=== PATIENT | female | born 1945 | race Caucasian/White ===

== ENCOUNTER 2016-11-21 10:24 | Emergency (ER) | payer MEDICARE, BC ==
[~2016-11-21] VITALS: Ht 165.1 cm; Wt 91.6 kg
[~2016-11-21 10:24] MED LIST: CLON1TAB PO; DOXE25CA3 PO; DULO60CA45 PO; MELO7.5T12 PO; TOPI50TA PO
[2016-11-21 11:27] VITALS: BP 115/74
== END 2016-11-21 12:48 | disposition home or self-care (01) ==
LOC: ER 10:30
DX: J20.9 Acute bronchitis, unspecified (principal); Z88.0 Allergy status to penicillin; Z88.8 Allergy status to other drugs, medicaments and biological substances; K57.90 Diverticulosis of intestine, part unspecified, without perforation or abscess without bleeding
CPT/HCPCS: 71010; 99283; A4606; Z7610

== ENCOUNTER 2017-01-31 11:53 | Inpatient (IN) | payer MEDICARE, BC ==
[~2017-01-31] VITALS: Ht 165.1 cm; Wt 93.0 kg
[2017-01-31] MEDS ORDERED: IV SET PRIMARY PUMP SET 1 EA INFUS.SET MC ONE ×3 (12:04→17:06)
[2017-01-31] MEDS ORDERED: IV NS 0.9% 1,000 ML ONE (12:04)
--- NOTE | 2017-01-31 12:07 | NUR ---
AAOx3, came to ER c/o fever this AM. Skin is hot to touch, resp is even and unlabored with nad noted. Assisted to hospital gown, placed on monitor. will continuously monitor the patient. Awaiting md for eval.
[2017-01-31 12:18] LABS: BASOPHILS # (AUTO) 0.4 /CMM (0.0-0.2); BASOPHILS % (AUTO) 3.7 % (0.0-2.0); EOSINOPHILS # (AUTO) 0.1 /CMM (0.0-0.7); EOSINOPHILS % (AUTO) 0.6 % (0.0-6.0); HEMATOCRIT 43 % (33-45); HEMOGLOBIN 14.1 g/dL (11.5-14.8); LYMPHOCYTES # (AUTO) 0.2 /CMM (0.8-4.8); LYMPHOCYTES % (AUTO) 2.5 % (20.0-44.0); MEAN CORPUSCULAR HEMOGLOBIN 29 PG (26.0-33.0); MEAN CORPUSCULAR HGB CONC 33 g/dl (31.0-36.0); MEAN CORPUSCULAR VOLUME 88 fL (82-100); MONOCYTES # (AUTO) 0.3 /CMM (0.1-1.30); NEUTROPHILS % (AUTO) 90.2 % (43.0-81.0); PLATELET COUNT (AUTO) 245 /CMM (150-450); RED BLOOD CELL COUNT(AUTO) 4.88 MIL/uL (4.0-5.2)
--- NOTE | 2017-01-31 12:21 | NUR ---
urine obtained sent to the lab.
[2017-01-31 12:24] LABS: APPEARANCE,URINE Slightly Cloudy (CLEAR); BILIRUBIN,URINE Negative (NEGATIVE); BLOOD, URINE Small Ery/uL (NEGATIVE); COLOR,URINE Yellow (YELLOW); KETONES,URINE Negative (NEGATIVE); LEUKOCYTE ESTERASE ,URINE Negative (NEGATIVE); NITRITE, URINE Negative (NEGATIVE); PROTEIN,URINE Negative (NEGATIVE); UROBILINOGEN,URINE 0.2 EU/dL (0.2)
[2017-01-31 12:25] LABS: UGLUCOSE 100 MG/DL mg/dL (NEGATIVE)
[2017-01-31 12:28] LABS: CALCIUM, SERUM 8.8 mg/dL (8.5-10.1); CARBON DIOXIDE 26 mmol/L (21-32); CHLORIDE 104 mmol/L (98-107); GFR 55 mL/min (>60); GLUCOSE 221 mg/dL (74-106); POTASSIUM 3.7 mmol/L (3.5-5.1); SODIUM SERUM 137 mmol/L (136-145); UREA NITROGEN, BLOOD 13 mg/dL (7-18)
[2017-01-31] MEDS ORDERED: IV NS 0.9% 1,000 ML BAG IV ONE (12:30)
[2017-01-31 12:32] LABS: INR 1.03 (0.87-1.13); PROTHROMBIN TIME 10.7 SECS (9.5-12.7)
[2017-01-31 12:34] LABS: ALANINE AMINOTRANSFERASE 37 U/L (12-78); ALBUMIN 3.9 g/dL (3.4-5.0); ALKALINE PHOSPHATASE 107 U/L (46-116); ASPARTATE AMINOTRANSFERASE 24 U/L (15-37); BILIRUBIN,DIRECT 0.1 mg/dL (0.0-0.2); BILIRUBIN,TOTAL 0.6 mg/dL (0.2-1.0)
[2017-01-31 12:36] LABS: TROPONIN I < 0.017 ng/mL (0.00-0.056)
[2017-01-31 12:38] LABS: ADD URINE CULTURE NO; BACTERIA,URINE Rare /HPF (None Seen); SQUAMOUS EPITHELIAL CELL,UR Few /HPF (None Seen)
[2017-01-31 13:13] LABS: LACTIC ACID 2.8 mmol/L (0.4-2.0)
--- NOTE | 2017-01-31 13:15 | NUR ---
Dr Chase at BS for an update and re-eval.
[2017-01-31] MEDS ORDERED: HYDROCODONE/APAP 5/325MG 1 EACH TABLET ONE (13:23)
[2017-01-31] MEDS ORDERED: IV SET PRIMARY 1 EA INFUS.SET MC ONE (13:23)
[2017-01-31] MEDS ORDERED: IV NS 0.9% 2,000 ML ONE (13:23)
[2017-01-31] MEDS ORDERED: CEFTRIAXONE 1GM BAG (ER ONLY) 1 GM/50 ML PIGGYBACK IV ONE (13:30)
[2017-01-31] MEDS ORDERED: IV NS 0.9% 1,000 ML IV ONE ×2 (13:30)
[2017-01-31] MEDS ORDERED: HYDROCODONE/APAP 5/325MG 1 EACH TABLET PO ONE (13:30)
--- NOTE | 2017-01-31 13:30 | NUR ---
PAGED DR STINSON
[2017-01-31] MEDS ORDERED: CEFTRIAXONE 1GM BAG (ER ONLY) 50 ML IV ONE (13:33)
[2017-01-31] MEDS ORDERED: GLUC500T12 PO (13:44)
[2017-01-31] MEDS ORDERED: SERT100T PO (13:44)
[2017-01-31] MEDS ORDERED: CYAN500T4 PO (13:44)
[2017-01-31] MEDS ORDERED: VITA1TAB56 PO (13:44)
[2017-01-31] MEDS ORDERED: DOXE10CA2 PO (13:46)
--- NOTE | 2017-01-31 14:35 | NUR ---
TELE1/RN REPORT FROM ER Report received from ER Nurse Gaye for pt to be admitted for sepsis under the care of Dr. Miguel. Awaiting for pt's arrival.
--- NOTE | 2017-01-31 14:42 | NUR ---
REPORT GIVEN TO MARCIE VALENCIA FOR HALLIE.
[2017-01-31] MEDS ORDERED: GLUCOSAMINE HCL 500 MG PO SCH (15:30)
[2017-01-31] MEDS ORDERED: MAG HYDROX/AL HYDROX/SIMETH 30 ML UDC PO PRN (15:30)
[2017-01-31] MEDS ORDERED: ACETAMINOPHEN 325 MG TABLET PO PRN (15:30)
[2017-01-31] MEDS ORDERED: Z GUARD REMEDY 2 OZ OINT TP PRN (15:30)
[2017-01-31] MEDS ORDERED: MAGNESIUM HYDROXIDE 30 ML UDC PO PRN (15:30)
[2017-01-31] MEDS ORDERED: ONDANSETRON HCL/PF 4 MG/2 ML VIAL IVP PRN (15:30)
[2017-01-31] MEDS ORDERED: ZOLPIDEM TARTRATE 5 MG TABLET PO PRN (15:30)
--- NOTE | 2017-01-31 15:30 | NUR ---
Patient is resting comfortably in bed with eyes closed. Easily aroused. VSS
[2017-01-31 16:20] VITALS: BP 145/91
--- NOTE | 2017-01-31 16:20 | NUR ---
TELE1/HOTEL CASINO FLOORPERSON TO TELE1 UNIT, ROOM 117#1 Pt arrived via gurney from ER, accompanied by ER nurse Luis and transport personnel. Pt ambulated to the bed, with steady gait. Pt A/O x 4, denies any symptoms at this time. On room saturating @ 98%, lung sounds clear, on tele with sinus rhythm. IV sites flushed, patent with no S/S of infection, SL. Pt is comfortable at this time. Awaiting for admitting orders. CL within reached and safety maintained.
[2017-01-31] MEDS: PANTOPRAZOLE 40 MG TABLET.DR PO SCH (17:13)
[2017-01-31] MEDS: IV 1/2NS 1000 ML 1,000 ML IV PRN (17:13)
[2017-01-31] MEDS: HYDROCODONE/APAP 5/325MG 1 EACH TABLET PO PRN ×2 (17:16→20:49)
--- NOTE | 2017-01-31 19:30 | NUR ---
RN INITIAL NOTE RECEIVED PT IN NO ACUTE DISTRESS IN BED. PT IS A/O X 3 AND ABLE TO MAKE NEEDS KNOWN. PT IS ON RA AND TOLERATING WELL WITH O2 SAT @ 99%. PT IS NOT C/O ANY SOB OR DIFFICULTY BREATHING. PT IS C/O PAIN 8/10 IN THE ABDOMEN, BACK, NECK AND HEAD. PAIN MANAGEMENT INITIATED AND CARRIED OUT. PT GIVEN NORCO 5/325 FOR PAIN. PT IS ON TELE WITH SINUS RHYTHM ON THE MONITOR. PT HAS BSC AND IS ABLE TO USE IT WITHOUT ASSISTANCE. PT HAS BRP WITH ASSIST. PT HAS BILATERAL AC 18G IVs THAT ARE CLEAN DRY INTACT AND PATENT. BED IN LOW LOCK POSITION WITH RIALS UP X 2. CALL LIGHT WITHIN REACH AND ALL SAFETY MEASURES ENSURED AND CARRIED OUT. WILL CONTINUE TO MONITOR PT.
--- NOTE | 2017-01-31 19:43 | NUR ---
TELE1/RN END NOTES No Acute change of condition noted, since pt was admitted this afternoon. Needs met. Pt endorsed to PM nurse to continue care. IV sites patent, IV infusion on going 1/2 NS @ 75cc/hr. CL within reached and safety maintained.
[2017-01-31 20:00] VITALS: BP 151/66
[2017-01-31] MEDS: ENOXAPARIN SODIUM 40 MG/0.4 ML DISP.SYRIN SQ SCH (21:00)
[2017-01-31] MEDS ORDERED: DOXEPIN HCL 10 MG CAPSULE PO SCH (22:00)
[2017-01-31] MEDS: clonazePAM 1 MG TABLET PO SCH (22:06)
[2017-01-31] MEDS ORDERED: DOXEPIN HCL (25 MG) 25 MG CAPSULE PO ONE (22:15)
[2017-01-31] MEDS: DOXEPIN HCL (25 MG) 25 MG CAPSULE PO SCH (22:40)
[2017-02-01] MEDS: HYDROCODONE/APAP 5/325MG 1 EACH TABLET PO PRN ×4 (02:01→18:16)
[2017-02-01 04:00] VITALS: BP 128/52
--- NOTE | 2017-02-01 06:43 | NUR ---
RN [id number] NOTE PT REMAINS IN NO ACUTE DISTRESS IN BED. PT DID NOT HAVE ANY SIGNIFICANT CHANGE IN CONDITION DURING SHIFT. ALL NEEDS MET ALL ORDERS CARRIED OUT. WILL ENDORSE CARE TO AM RN FOR CONTINUITY OF CARE.
[2017-02-01 07:08] LABS: BASOPHILS % (AUTO) 0.2 % (0.0-2.0); EOSINOPHILS # (AUTO) 0.1 /CMM (0.0-0.7); EOSINOPHILS % (AUTO) 1.1 % (0.0-6.0); HEMATOCRIT 35 % (33-45); LYMPHOCYTES # (AUTO) 0.6 /CMM (0.8-4.8); LYMPHOCYTES % (AUTO) 10.6 % (20.0-44.0); MEAN CORPUSCULAR HEMOGLOBIN 30 PG (26.0-33.0); MEAN CORPUSCULAR HGB CONC 35 g/dl (31.0-36.0); MEAN CORPUSCULAR VOLUME 87 fL (82-100); MONOCYTES # (AUTO) 0.3 /CMM (0.1-1.30); MONOCYTES % (AUTO) 5.7 % (2.0-12.0); NEUTROPHILS # (AUTO) 4.5 /CMM (1.8-8.9); NEUTROPHILS % (AUTO) 82.4 % (43.0-81.0); PLATELET COUNT (AUTO) 206 /CMM (150-450); RDW COEFFICIENT OF VARIATION 13.7 (11.5-15.0); RED BLOOD CELL COUNT(AUTO) 3.98 MIL/uL (4.0-5.2); WHITE BLOOD COUNT (AUTO) 5.5 K/uL (4.3-11.0)
[2017-02-01 07:26] LABS: ALANINE AMINOTRANSFERASE 64 U/L (12-78); ALBUMIN 2.9 g/dL (3.4-5.0); ALKALINE PHOSPHATASE 94 U/L (46-116); ASPARTATE AMINOTRANSFERASE 51 U/L (15-37); BILIRUBIN,TOTAL 0.5 mg/dL (0.2-1.0); CALCIUM, SERUM 7.6 mg/dL (8.5-10.1); CARBON DIOXIDE 24 mmol/L (21-32); CHLORIDE 109 mmol/L (98-107); CREATININE 0.9 mg/dL (0.6-1.3); GFR 62 mL/min (>60); GLUCOSE 158 mg/dL (74-106); MAGNESIUM 1.6 mg/dL (1.8-2.4); SODIUM SERUM 141 mmol/L (136-145); TOTAL PROTEIN, SERUM 5.6 g/dL (6.4-8.2); UREA NITROGEN, BLOOD 7 mg/dL (7-18)
[2017-02-01 07:31] LABS: CHOLESTEROL 150 mg/dL (<200); LDL 76 mg/dL (0-99); TRIGLYCERIDES 244 mg/dL (30-150)
[2017-02-01 07:35] LABS: HDL CHOLESTEROL < 10 mg/dL (40-60)
[2017-02-01 07:50] LABS: PHOSPHORUS 2.4 mg/dL (2.5-4.9)
[2017-02-01 08:00] VITALS: BP 123/41
--- NOTE | 2017-02-01 08:00 | NUR ---
TELE1/RN AM SHIFT INITIAL NOTES Received pt awake sitting in bed. Pt A/O x 4, no acute change of condition noted. Pt complaint of neck pain rated 4/10 related to chronic sciatic back pain. On room air saturating @ 95%, lung sounds clear. On Tele with sinus rhythm, HR 84. With on going IV infusion of 1/2 NS @ 75cc/hr, IV site patent with no s/s of infection. Scheduled AM meds to be given. CL within reached and safety maintained. On going monitoring.
[2017-02-01] MEDS: CYANOCOBALAMIN 500 MCG TABLET PO SCH (08:09)
[2017-02-01] MEDS: SERTRALINE HCL 50 MG TABLET PO SCH (08:09)
[2017-02-01] MEDS: VITAMIN B COMP W-C 1 TAB TABLET PO SCH (08:09)
[2017-02-01] MEDS: PANTOPRAZOLE 40 MG TABLET.DR PO SCH (08:09)
--- NOTE | 2017-02-01 09:36 | NUR ---
TELE1/RN OFF - CT SINUSES Pt left the Tele1 Unit via wheelchair in stable condition for CT of Sinuses.
[2017-02-01] MEDS ORDERED: SECONDARY IV SET 1 EA INFUS.SET MC ONE ×2 (09:51→13:10)
--- NOTE | 2017-02-01 09:56 | NUR ---
TELE1/RN BACK FROM CT Pt returned to Tele1 Unit via wheelchair in stable condition. Monitoring continued.
[2017-02-01] MEDS: IV 1/2NS 1000 ML 1,000 ML IV PRN (09:59)
[2017-02-01] MEDS: POTASSIUM CHLORIDE 20 MEQ TAB.PRT.SR PO SCH ×3 (10:05→12:22)
[2017-02-01] MEDS: Magnesium 1GM/D5W 100ML PREMIX 100 ML IV SCH ×2 (10:06→11:13)
[2017-02-01] MEDS ORDERED: POTASSIUM CHLORIDE 20 MEQ TAB.PRT.SR PO ONE (10:30)
[2017-02-01] MEDS ORDERED: Magnesium 1GM/D5W 100ML PREMIX 100 ML IV SCH (10:30)
[2017-02-01 12:00] VITALS: BP 143/53
[2017-02-01] MEDS ORDERED: K PHOS NEUTRAL 250 MG TABLET PO ONE (12:00)
--- NOTE | 2017-02-01 12:00 | NUR ---
TELE1/RN ROUNDS No change of condition. Pt's daughter at bedside. On going monitoring.
[2017-02-01] MEDS: CEFTRIAXONE 1 G in IV D5W 50 ML IV SCH (12:22)
[2017-02-01 16:00] VITALS: BP 141/54
--- NOTE | 2017-02-01 16:00 | NUR ---
TELE1/RN AFTERNOON ROUNDS NO CHANGE OF CONDITION NOTED. PT WITH FAMILY MEMBERS AT BEDSIDE. MONITORING CONTINUED.
--- NOTE | 2017-02-01 19:26 | NUR ---
TELE1/RN AM SHIFT END NOTES NO ACUTE CHANGE OF CONDITION NOTED DURING THE SHIFT. NEEDS MET. IV SITE, INTACT & PATENT, NO S/S OF INFECTION WITH ON GOING INFUSION OF 1/2NS @ 75CC/HR. PT ENDORSED TO PM NURSE TO CONTINUE CARE. CL WITHIN REACHED AND SAFETY MAINTAINED.
--- NOTE | 2017-02-01 19:30 | NUR ---
RN INITIAL NOTE RECEIVED PT IN NO ACUTE DISTRESS IN BED. PT IS A/O X 3 AND ABLE TO MAKE NEEDS KNOWN. PT IS ON RA AND TOLERATING WELL WITH O2 SAT @ 99%. PT IS NOT C/O ANY SOB OR DIFFICULTY BREATHING. PT IS C/O PAIN 8/10 IN THE ABDOMEN, BACK, NECK AND HEAD. PAIN MANAGEMENT INITIATED AND CARRIED OUT. PT GIVEN NORCO 5/325 FOR PAIN. PT IS ON TELE WITH SINUS RHYTHM ON THE MONITOR. PT HAS BSC AND IS ABLE TO USE IT WITHOUT ASSISTANCE. PT HAS BRP WITH ASSIST. PT HAS LEFT WRIST 20G IVs THAT IS CLEAN DRY INTACT AND PATENT. BED IN LOW LOCK POSITION WITH RIALS UP X 2. CALL LIGHT WITHIN REACH AND ALL SAFETY MEASURES ENSURED AND CARRIED OUT. WILL CONTINUE TO MONITOR PT.
[2017-02-01 20:00] VITALS: BP 138/71
[2017-02-01] MEDS: ENOXAPARIN SODIUM 40 MG/0.4 ML DISP.SYRIN SQ SCH (21:00)
[2017-02-01] MEDS: clonazePAM 1 MG TABLET PO SCH (22:00)
[2017-02-01] MEDS: DOXEPIN HCL (25 MG) 25 MG CAPSULE PO SCH (22:00)
[2017-02-01] MEDS ORDERED: DOXEPIN HCL (25 MG) 25 MG CAPSULE PO ONE (23:02)
[2017-02-02] VITALS: BP 123/52
[2017-02-02 04:00] VITALS: BP 115/64
--- NOTE | 2017-02-02 07:10 | NUR ---
CTRS NOTES RECEIVED PATIENT IN BED AWAKE, A/O X4. ON TELE MONITOR SINUS RHYTHM HR 84. BREATHING EVEN AND NON LABORED, NO SOB NOTED. IV LEFT WRIST G2O PATENT AND INTACT, FLUSHES WELL. IV 1/2 NS INFUSING AT 75ML/HR. CALL LIGHT WITHIN REACH. WILL CONT TO MONITOR.
--- NOTE | 2017-02-02 07:29 | NUR ---
RN [id number] NOTE PT REMAINS IN NO ACUTE DISTRESS IN BED. PT DID NOT HAVE ANY SIGNIFICANT CHANGE IN CONDITION DURING SHIFT. ALL NEEDS MET ALL ORDERS CARRIED OUT. WILL ENDORSE CARE TO AM RN FOR CONTINUITY OF CARE.
[2017-02-02 08:00] VITALS: BP 130/76
[2017-02-02] MEDS: CYANOCOBALAMIN 500 MCG TABLET PO SCH (08:15)
[2017-02-02] MEDS: SERTRALINE HCL 50 MG TABLET PO SCH (08:16)
[2017-02-02] MEDS: PANTOPRAZOLE 40 MG TABLET.DR PO SCH (08:16)
[2017-02-02] MEDS: VITAMIN B COMP W-C 1 TAB TABLET PO SCH (08:16)
--- NOTE | 2017-02-02 08:30 | NUR ---
PER PATIENT SHE DOES NOT LIKE THE FOOD WAS SERVED THIS MORNING, AND SHE PREPARED SCRAMBLE EGGS AND SAUSAGES. PATIENT IS CURRENTLY ON LOW FAT DIET. CALLED THE KITCHEN, WILL SEND ANOTHER TRAY FOR THE PATIENT.
[2017-02-02 08:44] LABS: CREATININE 0.8 mg/dL (0.6-1.3); PHOSPHORUS 2.7 mg/dL (2.5-4.9)
--- NOTE | 2017-02-02 10:51 | NUR ---
PATIENT TO BE DISCHARGED TODAY ORDERED.
[2017-02-02] MEDS: CEFTRIAXONE 1 G in IV D5W 50 ML IV SCH (11:02)
--- NOTE | 2017-02-02 12:18 | NUR ---
MS RN DISCHARGED PATIENT HAS BEEN CLEARED FOR DISCHARGE HOME BY . PATIENT IS A/O X4, AMBULATORY, NO C/O PAIN OR ANY DISCOMFORT. SKIN INTACT, DISCHARGE INSTRUCTION GIVEN TO THE PATIENT AND FRIEND-LIBRA, VERBALIZED UNDERSTANDING. PATIENT IS AWARE SHE WILL FOLLOW UP WITH DR. BABAK HURT ON FRIDAY. IV IN LEFT WRIST REMOVED, GAUZED APPLIED, NO BLEEDING NOTED. BELONGINGS CHECKED AND SEND WITH THE PATIENT UPON DC. PATIENT LEFT HOSP IN STABLE CONDITION VIA PRIVATE CAR ACCOMPANIED BY FRIEND-LIBRA.
== END 2017-02-02 12:10 | disposition home or self-care (01) | DRG 872 ==
LOC: ER 11:54 → TELE1 13:51 → MEDSG1 02-02 10:43
PROVIDERS: ADMIT Internal Medicine; ATTEND Internal Medicine
DX: A41.9 Sepsis, unspecified organism (principal); E87.2 Acidosis; J32.0 Chronic maxillary sinusitis; E66.9 Obesity, unspecified; E11.9 Type 2 diabetes mellitus without complications; I10 Essential (primary) hypertension; I25.10 Atherosclerotic heart disease of native coronary artery without angina pectoris; K42.9 Umbilical hernia without obstruction or gangrene; K44.9 Diaphragmatic hernia without obstruction or gangrene; M47.814 Spondylosis without myelopathy or radiculopathy, thoracic region; N85.4 Malposition of uterus; Z87.440 Personal history of urinary (tract) infections; Z87.442 Personal history of urinary calculi; Z88.0 Allergy status to penicillin; J01.90 Acute sinusitis, unspecified; E78.5 Hyperlipidemia, unspecified; E88.81 Metabolic syndrome and other insulin resistance; N20.0 Calculus of kidney
CPT/HCPCS: 36415; 70486-TC; 71010-TC; 80048-TC; 80053-TC; 80061-TC; 80076-TC; 81000-TC; 83605-TC; 83735-TC; 84100-TC; 84484-TC; 85025-TC; 85730-TC; 87040-TC; 87081-TC; A4606; J0696; J1650; J3475; J3490; J7030; J7060; Z7610

== ENCOUNTER 2017-05-21 08:54 | Emergency (ER) | payer MEDICARE, BC ==
[~2017-05-21] VITALS: Ht 165.1 cm; Wt 93.0 kg
[~2017-05-21 08:54] MED LIST changes: +CYAN500T4 PO; +DOXE10CA2 PO; -DOXE25CA3 PO; -DULO60CA45 PO; +GLUC500T12 PO; -MELO7.5T12 PO; +SERT100T PO; -TOPI50TA PO; +VITA1TAB56 PO
--- NOTE | 2017-05-21 09:15 | NUR ---
PATIENT PRESENTS TO ER C/O LEFT UPPER EXTREMITY PAIN/BURNING. PATIENT IS A/OX 4. BREATHING EVEN AND UNLABORED. NO SOB. VITALS STABLE. SAFETY AND COMFORT MEASURES IN PLACE. AWAITING MD ORDERS.
[2017-05-21] MEDS ORDERED: ONDANSETRON HCL/PF 4 MG/2 ML VIAL ONE (09:28)
[2017-05-21] MEDS ORDERED: MORPHINE SULFATE INJ 2 MG/ML DISP.SYRIN ONE (09:28)
[2017-05-21] MEDS ORDERED: MORPHINE SULFATE INJ 2 MG/ML DISP.SYRIN IV ONE (09:30)
[2017-05-21] MEDS ORDERED: ONDANSETRON HCL/PF - ER 4 MG/2 ML VIAL IV ONE (09:30)
--- NOTE | 2017-05-21 09:42 | NUR ---
NEW IV STARTED ON RIGHT HAND, 20 G. UNABLE TO DRAW BLOOD, BUT FLUSHED WELL, NO S/S OF INFILTRATION. PATIENT REFUSED MORPHINE/ZOFRAN STATING SHE DOESNT NEED SUCH STRONG PAIN MEDICATION. RERECORDING MIXER AT BEDSIDE. CHANNEL ROUGHER TO DRAW BLOOD.
[2017-05-21 09:50] LABS: EOSINOPHILS # (AUTO) 0.1 /CMM (0.0-0.7); RDW COEFFICIENT OF VARIATION 12.4 (11.5-15.0); RED BLOOD CELL COUNT(AUTO) 4.67 MIL/uL (4.0-5.2); WHITE BLOOD COUNT (AUTO) 7.4 K/uL (4.3-11.0)
[2017-05-21 09:54] LABS: BASOPHILS # (AUTO) 0.1 /CMM (0.0-0.2); BASOPHILS % (AUTO) 0.7 % (0.0-2.0); EOSINOPHILS % (AUTO) 1.9 % (0.0-6.0); HEMATOCRIT 40 % (33-45); HEMOGLOBIN 13.5 g/dL (11.5-14.8); LYMPHOCYTES % (AUTO) 26.9 % (20.0-44.0); MEAN CORPUSCULAR HEMOGLOBIN 29 PG (26.0-33.0); MEAN CORPUSCULAR HGB CONC 34 g/dl (31.0-36.0); MEAN CORPUSCULAR VOLUME 87 fL (82-100); MONOCYTES # (AUTO) 0.7 /CMM (0.1-1.30); MONOCYTES % (AUTO) 9.1 % (2.0-12.0); NEUTROPHILS # (AUTO) 4.5 /CMM (1.8-8.9); NEUTROPHILS % (AUTO) 61.4 % (43.0-81.0); PLATELET COUNT (AUTO) 242 /CMM (150-450)
--- NOTE | 2017-05-21 10:00 | NUR ---
US TECH AT BEDSIDE.
[2017-05-21 10:04] LABS: ALBUMIN 3.4 g/dL (3.4-5.0); BILIRUBIN,TOTAL 0.3 mg/dL (0.2-1.0); CREATININE 0.9 mg/dL (0.6-1.3); TOTAL PROTEIN, SERUM 6.4 g/dL (6.4-8.2)
[2017-05-21 10:08] LABS: CALCIUM, SERUM 8.6 mg/dL (8.5-10.1)
[2017-05-21 10:24] LABS: C-REACTIVE PROTEIN 0.4 mg/dL (0.0-0.9)
[2017-05-21] MEDS ORDERED: LABETALOL 20 MG/4 ML VIAL ONE (11:05)
[2017-05-21 11:06] VITALS: BP 142/74
--- NOTE | 2017-05-21 11:25 | NUR ---
Patient discharged to home in stable condition. Written and verbal after care instructions given. Patient verbalizes understanding of instruction.
== END 2017-05-21 11:25 | disposition home or self-care (01) ==
LOC: ER 08:57
DX: M13.812 Other specified arthritis, left shoulder (principal); M79.601 Pain in right arm; Z88.0 Allergy status to penicillin; Z88.2 Allergy status to sulfonamides; Z88.1 Allergy status to other antibiotic agents; Z88.8 Allergy status to other drugs, medicaments and biological substances
CPT/HCPCS: 36415; 73060; 80053; 85025; 85652; 86140; 93971; 99285; A4606; J2405; J3490; J2270; Z7610

== ENCOUNTER 2017-06-02 03:17 | Emergency (ER) | payer MEDICARE, BC ==
[~2017-06-02] VITALS: Ht 167.6 cm; Wt 81.6 kg
--- NOTE | 2017-06-02 03:30 | NUR ---
BB RA; NAUSEA VOMIT DIFFUSE BODY PAIN. PT AOX3 RR EVEN AND UNLABORED. NO SOB NOTED. NAD NOTED. NO NVD AT THIS TIME. PT GOWNED AND PLACED ON MONTIOR WAITING FOR MD VALENTINO. PT NOT DIAPHORETIC.
--- NOTE | 2017-06-02 03:32 | NUR ---
URINE COLLECTED. CALLED LAB FOR LOCK SETTER.
--- NOTE | 2017-06-02 03:34 | NUR ---
LAB AT BEDSIDE FOR BLOOD DRAW.
[2017-06-02] MEDS ORDERED: ACETAMINOPHEN ES 500 MG TABLET ONE (03:38)
[2017-06-02 03:51] LABS: BASOPHILS % (AUTO) 0.1 % (0.0-2.0); EOSINOPHILS # (AUTO) 0.1 /CMM (0.0-0.7); EOSINOPHILS % (AUTO) 0.8 % (0.0-6.0); HEMATOCRIT 40 % (33-45); HEMOGLOBIN 13.5 g/dL (11.5-14.8); LYMPHOCYTES # (AUTO) 0.3 /CMM (0.8-4.8); LYMPHOCYTES % (AUTO) 4.8 % (20.0-44.0); MEAN CORPUSCULAR HEMOGLOBIN 29 PG (26.0-33.0); MEAN CORPUSCULAR HGB CONC 34 g/dl (31.0-36.0); MEAN CORPUSCULAR VOLUME 87 fL (82-100); MONOCYTES # (AUTO) 0.3 /CMM (0.1-1.30); MONOCYTES % (AUTO) 3.9 % (2.0-12.0); NEUTROPHILS # (AUTO) 6.4 /CMM (1.8-8.9); NEUTROPHILS % (AUTO) 90.4 % (43.0-81.0); PLATELET COUNT (AUTO) 202 /CMM (150-450); RDW COEFFICIENT OF VARIATION 13.1 (11.5-15.0); RED BLOOD CELL COUNT(AUTO) 4.58 MIL/uL (4.0-5.2); WHITE BLOOD COUNT (AUTO) 7.1 K/uL (4.3-11.0)
[2017-06-02 03:52] LABS: APPEARANCE,URINE CLEAR (CLEAR); BILIRUBIN,URINE NEGATIVE (NEGATIVE); BLOOD, URINE TRACE-INTA Ery/uL (NEGATIVE); KETONES,URINE NEGATIVE (NEGATIVE); LEUKOCYTE ESTERASE ,URINE NEGATIVE (NEGATIVE); NITRITE, URINE NEGATIVE (NEGATIVE); PROTEIN,URINE NEGATIVE (NEGATIVE); UGLUCOSE NEGATIVE (NEGATIVE); UROBILINOGEN,URINE 0.2 EU/dL (0.2)
[2017-06-02 03:54] LABS: COLOR,URINE GREEN (YELLOW)
[2017-06-02] MEDS ORDERED: [UNRECOGNIZED DRUG - CODE] PO (03:59)
[2017-06-02] MEDS ORDERED: TRAM50TA2 PO (03:59)
[2017-06-02] MEDS ORDERED: DOXE10CA2 PO (03:59)
[2017-06-02] MEDS ORDERED: NITR100C PO (03:59)
[2017-06-02] MEDS ORDERED: LEVOFLOXACIN 750 MG /D5W 150ML PIGGYBACK IV ONE (04:00)
[2017-06-02] MEDS ORDERED: IV NS 0.9% 1,000 ML BAG IV ONE (04:00)
[2017-06-02] MEDS ORDERED: ACETAMINOPHEN 325 MG TABLET PO ONE (04:00)
[2017-06-02] MEDS ORDERED: MEROPENEM 1,000 MG in IV NS 0.9% 100 ML IV ONE (04:00)
--- NOTE | 2017-06-02 04:00 | NUR ---
PER DR. REBOLLEDO TO HOLD IV ATB MEDICATION AT THIS TIME.
[2017-06-02 04:01] LABS: CALCIUM, SERUM 8.8 mg/dL (8.5-10.1); CREATININE 0.8 mg/dL (0.6-1.3); POTASSIUM 3.5 mmol/L (3.5-5.1)
[2017-06-02 04:03] LABS: INR 1.01 (0.87-1.13); PROTHROMBIN TIME 10.8 SECS (9.5-12.7)
[2017-06-02 04:08] LABS: ALBUMIN 3.8 g/dL (3.4-5.0); BILIRUBIN,DIRECT 0.1 mg/dL (0.0-0.2); BILIRUBIN,TOTAL 0.5 mg/dL (0.2-1.0)
[2017-06-02 04:13] LABS: BACTERIA,URINE None seen /HPF (None Seen); SQUAMOUS EPITHELIAL CELL,UR Rare /HPF (None Seen); WBC,URINE 0-3 /HPF (0-3)
[2017-06-02 04:14] LABS: MUCUS,URINE Rare /LPF (None Seen)
--- NOTE | 2017-06-02 04:17 | NUR ---
DR. REBOLLEDO AT BEDSIDE SPEAKING TO PT REGARDING RESULTS.
[2017-06-02] MEDS ORDERED: LEVOFLOXACIN (750 MG) 750 MG TABLET ONE (04:24)
[2017-06-02] MEDS ORDERED: LEVOFLOXACIN (750 MG) 750 MG TABLET PO SCH (04:30)
--- NOTE | 2017-06-02 04:45 | NUR ---
IV removed. Catheter intact and site benign. Pressure and 4x4 applied to site. No bleeding noted. Patient discharged to home in stable condition. Written and verbal after care instructions given. Patient verbalizes understanding of instruction. pt ambulatory with a steady gait. pt accompanied by roommate
[2017-06-02 04:47] VITALS: BP 129/62
== END 2017-06-02 04:48 | disposition home or self-care (01) ==
LOC: ER 03:19
DX: M79.1 Myalgia (principal); E86.0 Dehydration; R50.9 Fever, unspecified; R10.30 Lower abdominal pain, unspecified; G89.29 Other chronic pain; Z88.8 Allergy status to other drugs, medicaments and biological substances; Z88.2 Allergy status to sulfonamides; Z88.0 Allergy status to penicillin
CPT/HCPCS: 36415; 80048-TC; 80076-TC; 81000-TC; 82550-TC; 83690-TC; 85025-TC; 85610-TC; 87086-TC; A4606; J2185; J7030; Z7610

== ENCOUNTER 2018-09-22 17:25 | Inpatient (IN) | payer MEDICARE, BC ==
[~2018-09-22] VITALS: Ht 165.1 cm; Wt 95.5 kg
[~2018-09-22 17:25] MED LIST changes: +NITR100C PO; +TRAM50TA2 PO; +[UNRECOGNIZED DRUG - CODE] PO
--- NOTE | 2018-09-22 18:15 | NUR ---
URINE COLLECTED AND SENT TO LAB
--- NOTE | 2018-09-22 18:20 | NUR ---
DR WHITING AT BEDSIDE
--- NOTE | 2018-09-22 18:21 | NUR ---
TECH AT BEDSIDE FOR EKG
[2018-09-22 18:26] LABS: APPEARANCE,URINE Clear (CLEAR); BILIRUBIN,URINE Negative (NEGATIVE); BLOOD, URINE Negative Ery/uL (NEGATIVE); COLOR,URINE Yellow (YELLOW); KETONES,URINE 15 (NEGATIVE); LEUKOCYTE ESTERASE ,URINE Negative (NEGATIVE); NITRITE, URINE Negative (NEGATIVE); PH,URINE 5.5 (5.0-8.0); PROTEIN,URINE Negative (NEGATIVE); UGLUCOSE Negative (NEGATIVE); UROBILINOGEN,URINE 0.2 EU/dL (0.2)
--- NOTE | 2018-09-22 18:30 | NUR ---
PHLEB AT BEDSIDE
[2018-09-22 18:52] LABS: BASOPHILS % (AUTO) 0.2 % (0.0-2.0); HEMATOCRIT 45 % (33-45); HEMOGLOBIN 15.2 g/dL (11.5-14.8); LYMPHOCYTES # (AUTO) 0.2 /CMM (0.8-4.8); MEAN CORPUSCULAR HGB CONC 34 g/dl (31.0-36.0); MEAN CORPUSCULAR VOLUME 89 fL (82-100); MONOCYTES # (AUTO) 0.3 /CMM (0.1-1.30); MONOCYTES % (AUTO) 3.2 % (2.0-12.0); NEUTROPHILS # (AUTO) 9.3 /CMM (1.8-8.9); NEUTROPHILS % (AUTO) 93.6 % (43.0-81.0); PLATELET COUNT (AUTO) 172 /CMM (150-450); RED BLOOD CELL COUNT(AUTO) 4.98 MIL/uL (4.0-5.2); WHITE BLOOD COUNT (AUTO) 9.9 K/uL (4.3-11.0)
[2018-09-22 19:01] LABS: CALCIUM, SERUM 8.7 mg/dL (8.5-10.1); CARBON DIOXIDE 22 mmol/L (21-32); CHLORIDE 100 mmol/L (98-107); CREATININE 0.8 mg/dL (0.6-1.3); GLUCOSE 150 mg/dL (74-106); POTASSIUM 3.3 mmol/L (3.5-5.1); SODIUM SERUM 135 mmol/L (136-145); UREA NITROGEN, BLOOD 14 mg/dL (7-18)
[2018-09-22 19:06] LABS: ALANINE AMINOTRANSFERASE 316 U/L (12-78); ALBUMIN 3.2 g/dL (3.4-5.0); ALKALINE PHOSPHATASE 258 U/L (46-116); ASPARTATE AMINOTRANSFERASE 194 U/L (15-37); BILIRUBIN,DIRECT 0.5 mg/dL (0.0-0.2); TOTAL PROTEIN, SERUM 6.6 g/dL (6.4-8.2)
--- NOTE | 2018-09-22 19:14 | NUR ---
REPORT GIVEN TO MARCIE HIDALGO FOR HALLIE
--- NOTE | 2018-09-22 19:15 | NUR ---
Received pt from MARCIE James. Pt just came back from Radiology for Pelvic CT. A, O/4, appears anxious in bed. States "my doctor said I have septic shock." Visitor at .
[2018-09-22] MEDS ORDERED: KETOROLAC TROMETHAMINE INJ 30 MG/ML VIAL IV ONE (20:00)
[2018-09-22] MEDS ORDERED: IV NS 0.9% 1,000 ML BAG IV ONE (20:30)
[2018-09-22] MEDS ORDERED: MEROPENEM 1,000 MG in IV NS 0.9% 100 ML IV ONE (20:30)
[2018-09-22] MEDS ORDERED: MEROPENEM 1 G VIAL IV ONE (20:31)
[2018-09-22] MEDS ORDERED: MAGNESIUM HYDROXIDE 30 ML UDC PO PRN (21:00)
[2018-09-22] MEDS ORDERED: MORPHINE SULFATE INJ 2 MG/ML DISP.SYRIN IV PRN (21:00)
[2018-09-22] MEDS ORDERED: Z GUARD REMEDY 2 OZ OINT TP PRN (21:00)
[2018-09-22] MEDS ORDERED: ACETAMINOPHEN 325 MG TABLET PO PRN (21:00)
[2018-09-22] MEDS ORDERED: ONDANSETRON HCL/PF 4 MG/2 ML VIAL IVP PRN (21:00)
[2018-09-22] MEDS ORDERED: ZOLPIDEM TARTRATE 5 MG TABLET PO PRN (21:00)
[2018-09-22] MEDS ORDERED: POTASSIUM CHLORIDE 20 MEQ TAB.PRT.SR PO ONE ×2 (21:00)
[2018-09-22] MEDS ORDERED: LORAZEPAM 1 MG TABLET PO PRN (21:00)
[2018-09-22] MEDS ORDERED: MAG HYDROX/AL HYDROX/SIMETH 30 ML UDC PO PRN (21:00)
[2018-09-22] MEDS ORDERED: TRAMADOL HCL 50 MG TABLET PO PRN (21:30)
[2018-09-22] MEDS ORDERED: DOXEPIN HCL 10 MG CAPSULE PO SCH (22:00)
[2018-09-22] MEDS ORDERED: DOXEPIN HCL (25 MG) 25 MG CAPSULE PO SCH (22:00)
--- NOTE | 2018-09-22 22:15 | NUR ---
Pt will be admmitted to 326. Report given to MARCIE Tabor.
[2018-09-22 22:30] VITALS: BP 120/43
--- NOTE | 2018-09-22 22:30 | NUR ---
GROUND CREW SUPERVISORFOUNDRY WORKER GENERAL NOTES Patient came to unit via gurney. Alert, oriented x 4. Breathing even and unlabored. Tolerating room air. As per ER nurse report, 1L NS bolus given in ER, 2nd bag infusing and 1 more bag to go. Skin assessment done. Pictures in chart. Oriented to call escalante. Patient verbalizes understanding. Bed in low, locked position. Patient able to ambulate with assistance to the bathroom. Tele monitor in place, sinus rhythm 97. Call escalante within reach. Bed in low, locked position. Will continue to monitor accordingly
[2018-09-22] MEDS: HYDROCODONE/APAP 5/325MG 1 EACH TABLET PO PRN (22:41)
--- NOTE | 2018-09-22 22:43 | NUR ---
VISION SPECIALIST NOTES Patient c/o generalized pain, 07/06. Refused morphine, just wants the norco. [facility] 5-325 given as ordered
--- NOTE | 2018-09-22 22:45 | NUR ---
Pt transported to [facility], Rm 326, via [facility]. Endorsed to MARCIE Granados.
[2018-09-22] MEDS: clonazePAM 1 MG TABLET PO SCH (22:54)
[2018-09-22] MEDS: MEROPENEM 500 MG in IV NS 0.9% 50 ML IV SCH (22:58)
--- NOTE | 2018-09-22 22:59 | NUR ---
NETWORK DEVELOPER NOTES Merrem and K-Dur already given in ER
--- NOTE | 2018-09-22 23:00 | NUR ---
PRACTICE COORDINATOR NOTES Patient gave a list of people who can visit her: , Glenda, and Cesario. Charge nurse made aware. Copies given to charge nurse, 3w executive secretary social welfare, Nursing byproducts supervisor and Security.
--- NOTE | 2018-09-22 23:40 | NUR ---
TUBER MACHINE OPERATOR NOTES On-call informed that patient is taking Doxepin HCl 70mg instead of the 20mg ordered and that Doxepin available is in 25mg capsules. As per on-call," give Doxepin HCl 75mg tonight and ask pahrmacy to give patient 70mg tomorrow." Orders noted and carried out
[2018-09-22] MEDS ORDERED: DOXEPIN HCL (25 MG) 25 MG CAPSULE PO ONE (23:49)
[2018-09-22] MEDS: DOXEPIN HCL (25 MG) 25 MG CAPSULE PO SCH (23:52)
[2018-09-23] MEDS: IV NS 0.9% 1,000 ML IV PRN (02:12)
[2018-09-23 04:00] VITALS: BP 129/49
[2018-09-23] MEDS ORDERED: MEROPENEM 500 MG VIAL IV ONE (04:55)
[2018-09-23] MEDS: MEROPENEM 500 MG in IV NS 0.9% 50 ML IV SCH (05:04)
--- NOTE | 2018-09-23 07:15 | NUR ---
ORTHOPAEDIC NURSE OPENING NOTE RECEIVED PT IN BED, ALERT AND ORIENTED X4. DENIES N/V, CHEST PAIN, SOB. BREATHING IS EVEN AND UNLABORED ON ROOM AIR. PT ON BOOK ILLUSTRATOR WITH SINUS RHYTHM, HR IN 80'S. L FA #20G IV INFUSING NS @ 75ML/HR WITHOUT REDNESS OR SWELLING. ALL NEEDS ATTENDED TO, BED IS LOCKED AND IN LOWEST POSITION, SIDE RAILS UP X2, CALL LIGHT WITHIN REACH.
--- NOTE | 2018-09-23 07:31 | NUR ---
SENIOR JAVA SOFTWARE DEVELOPER CLOSING NOTES Patient in bed, alert, oriented x 4. Breathing even and unlabored. Not in any distress. Peripheral IV infusing at 75mL/hr. Tele monitor in place, sinus rhythm 92. All needs attended to. All due medications given as ordered. Call escalante within reach. Bed in low, locked position. Endorsed HALLIE to AM RN
[2018-09-23 08:00] VITALS: BP 109/46
[2018-09-23 08:15] LABS: BASOPHILS % (AUTO) 0.4 % (0.0-2.0); EOSINOPHILS % (AUTO) 1.1 % (0.0-6.0); HEMATOCRIT 37 % (33-45); HEMOGLOBIN 12.5 g/dL (11.5-14.8); LYMPHOCYTES # (AUTO) 0.2 /CMM (0.8-4.8); LYMPHOCYTES % (AUTO) 2.3 % (20.0-44.0); MEAN CORPUSCULAR HGB CONC 34 g/dl (31.0-36.0); MEAN CORPUSCULAR VOLUME 90 fL (82-100); MONOCYTES # (AUTO) 0.3 /CMM (0.1-1.30); MONOCYTES % (AUTO) 4.3 % (2.0-12.0); NEUTROPHILS # (AUTO) 6.2 /CMM (1.8-8.9); NEUTROPHILS % (AUTO) 91.9 % (43.0-81.0); PLATELET COUNT (AUTO) 136 /CMM (150-450); RED BLOOD CELL COUNT(AUTO) 4.05 MIL/uL (4.0-5.2); WHITE BLOOD COUNT (AUTO) 6.7 K/uL (4.3-11.0)
[2018-09-23 08:23] LABS: ALANINE AMINOTRANSFERASE 327 U/L (12-78); ALBUMIN 2.3 g/dL (3.4-5.0); ALKALINE PHOSPHATASE 233 U/L (46-116); ASPARTATE AMINOTRANSFERASE 189 U/L (15-37); BILIRUBIN,TOTAL 1.5 mg/dL (0.2-1.0); CALCIUM, SERUM 7.6 mg/dL (8.5-10.1); CARBON DIOXIDE 22 mmol/L (21-32); CHLORIDE 109 mmol/L (98-107); CREATININE 0.8 mg/dL (0.6-1.3); GLUCOSE 152 mg/dL (74-106); MAGNESIUM 1.7 mg/dL (1.8-2.4); PHOSPHORUS 2.7 mg/dL (2.5-4.9); POTASSIUM 4.1 mmol/L (3.5-5.1); SODIUM SERUM 140 mmol/L (136-145); TOTAL PROTEIN, SERUM 5.2 g/dL (6.4-8.2); UREA NITROGEN, BLOOD 12 mg/dL (7-18)
[2018-09-23 08:34] LABS: CHOLESTEROL 125 mg/dL (<200); HDL CHOLESTEROL 43 mg/dL (40-60); LDL 70 mg/dL (0-99); TRIGLYCERIDES 87 mg/dL (30-150)
[2018-09-23] MEDS: PANTOPRAZOLE 40 MG TABLET.DR PO SCH (08:34)
[2018-09-23] MEDS: HYDROCODONE/APAP 5/325MG 1 EACH TABLET PO PRN ×2 (08:35→20:03)
[2018-09-23] MEDS: ENOXAPARIN SODIUM 40 MG/0.4 ML DISP.SYRIN SQ SCH (08:43)
[2018-09-23] MEDS ORDERED: NITROFURANTOIN MACROCRYSTAL PO SCH (09:00)
[2018-09-23] MEDS: SERTRALINE HCL 50 MG TABLET PO SCH (09:00)
[2018-09-23] MEDS ORDERED: GLUCOSAMINE HCL 500 MG PO SCH (09:00)
[2018-09-23] MEDS: MEROPENEM 500 MG in IV NS 0.9% 100 ML IV SCH ×2 (09:18→17:04)
--- NOTE | 2018-09-23 09:32 | NUR ---
WRAPPER DIPPER NON ADMINISTRATION NOTE PT REFUSED SERTRALINE 200MG ORDERED. PT STATED THAT SHE DOES NOT TAKE THIS MEDICATION ROUTINELY AND TAKES CYMBALTA 30MG ONCE DAILY INSTEAD. WILL FOLLOW UP WITH HOSPITALIST REGARDING HOME MEDICATION RECON.
--- NOTE | 2018-09-23 10:47 | NUR ---
MS RN NEW IV INSERTED NEW IV INSERTED AT THE RIGHT HAND #22G AND IS PATENT, CLEAN, DRY AND INACT. L FA IV FOUND TO BE INFILTRATED. PT TOLERATED PROCEDURE WELL.
[2018-09-23] MEDS: Magnesium 1GM/D5W 100ML PREMIX 100 ML IV SCH ×2 (11:14→12:42)
--- NOTE | 2018-09-23 13:00 | NUR ---
MS JACKPIECE MARKER SMALL ARMS CONSULT FACE SHEET FAXED TO [facility] FOR PSYCH CONSULT.
--- NOTE | 2018-09-23 14:30 | NUR ---
MS RN UNWITNESSED FALL WALKED INTO PT ROOM AND FOUND PT STANDING BY BATHROOM SINK WITH IV POLE. PT REPORTED TO THE NURSE "I FELL IN THE BATHROOM". PT IS ALERT AND ORIENTED X4. PT DENIES HITTING HER HEAD, LOSS OF CONSCIOUSNESS. PT REPORTED "LANDING ON MY KNEES". NO CHANGE IN BASELINE ROM OF BILATERAL KNEES, NO SWELLING, BRUISING. PT DENIES BILATERAL KNEE PAIN. WHEN ASKED IF PT USED THE CALL LIGHT PRIOR TO GETTING OUT OF BED, PT STATED "NO, I NEEDED TO GO TO THE BATHROOM". ACCORDING TO LAURO LLAMAS SHE WAS IN THE PT ROOM AT APPROXIMATELY 2:00 P.M AND THE PT STATED SHE DID NOT NEED ANY ASSISTANCE. PT HAS A FALL RISK SCORE OF 55. ALERTED CHARGE NURSE PORTIA, PT WILL BE MOVED TO A ROOM CLOSER TO THE NURSES STATION FOR CLOSER MONITORING. SIDE RAILS UP X2, BED ALARM ON, CALL LIGHT AND POSSESSIONS WITHIN REACH. REINFORCED IMPORTANCE OF USING CALL LIGHT FOR ASSISTANCE PRIOR TO GETTING OUT OF BED, PT VERBALIZED UNDERSTANDING AND AGREEMENT. NOTIFIED DR. SMYTH OF INCIDENT, NO NEW ORDERS RECEIVED. WILL CONTINUE TO MONITOR.
[2018-09-23 16:00] VITALS: BP 118/57
[2018-09-23] MEDS ORDERED: DOXEPIN HCL 10 MG CAPSULE PO SCH (18:00)
--- NOTE | 2018-09-23 18:58 | NUR ---
MS RN CLOSING NOTE PT IN BED, ALERT AND ORIENTED X4. DENIES N/V, CHEST PAIN, SOB. BREATHING IS EVEN AND UNLABORED ON ROOM AIR. R HAND #22G IV INFUSING NS @ 75ML/HR WITHOUT REDNESS OR SWELLING. PT IS S/P UNWITNESSED, SELF-REPORTED FALL TODAY ONTO KNEES AT APPROXIMATELY 2:30PM. NO CHANGES IN MENTAL STATUS, BILATERAL KNEES AT BASELINE ROM, NO PAIN REPORTED, NO BRUISING OR SWELLING. ALL NEEDS ATTENDED TO, BED IS LOCKED AND IN LOWEST POSITION, SIDE RAILS UP X2, CALL LIGHT WITHIN REACH.
--- NOTE | 2018-09-23 19:30 | NUR ---
RN OPENING NOTES: RECEIVED PATIENT AWAKE AND ALERT NOT IN APPARENT DISTRESS ON ROOM AIR AT THIS TIME. OFF SOFTWARE SYSTEMS ARCHITECT. IVF INFUSING ORDERED. WITH COMPLAINTS OF SHARP PAIN OVER LEFT LOWER ABDOMEN. TO RENDERED PAIN MANAGEMENT ORDERED AND TO MONITOR RESPONSE TO PAIN MEDS. SAFETY MEASURES AND FALL PRECAUTIONS ENSURED. CALL LIGHT IN REACH AND RE EDUCATED PATIENT TO CALL FOR ASSISTANCE ESPECIALLY WHEN GETTING OUT OF BED. BED ALARM SET. CONTINUOUSLY MONITORED.
[2018-09-23 20:00] VITALS: BP 136/56
[2018-09-23] MEDS: clonazePAM 1 MG TABLET PO SCH (21:50)
[2018-09-23] MEDS: DOXEPIN HCL (25 MG) 25 MG CAPSULE PO SCH (21:52)
--- NOTE | 2018-09-23 22:00 | NUR ---
RN NOTES; PATIENT SUDDENLY ASKED HOW EARLY CAN SHE BE DISCHARGED IN THE MORNING. EXPLAINED TO PATIENT DISCHARGE PROCEDURE. PER PATIENT SHE JUST WANTED TO BE SEEN BY HER DOCTOR AND SEEMS FRUSTRATED WITH THE CARE SHE REMEMBERED SHE RECEIVED DURING HER PREVIOUS ADMISSION. TO COMMUNICATE TO AM SHIFT RN THAT PATIENT WOULD LIKE TO SPEAK TO MD EARLY POSSIBLE IN AM.
[2018-09-24] MEDS: IV NS 0.9% 1,000 ML IV PRN (02:41)
[2018-09-24] MEDS: MEROPENEM 500 MG in IV NS 0.9% 100 ML IV SCH ×2 (02:41→10:00)
--- NOTE | 2018-09-24 06:55 | NUR ---
RN CLOSING NOTES: PATIENT WOKE UP SWEATY, ASSISTED IN LINEN CHANGE AND GOWN CHANGE. AM LABS DRAWN, PENDING RESULT. PATIENT REFUSING TO HAVE IV HOOKED BACK ON SINCE PRIOR DOSE OF IV ATB FINISHED. EXPLAINED RISK AND BENEFITS. PATIENT ABLE TO TAKE AND TOLERATE PO FLUIDS AT THIS TIME. TO ENDORSE TO AM SHIFT RN. CONTINUOUSLY MONITORED. SAFETY MEASURES ENSURED.
[2018-09-24] MEDS: PANTOPRAZOLE 40 MG TABLET.DR PO SCH (07:30)
--- NOTE | 2018-09-24 07:30 | NUR ---
MS RN OPENING NOTES RECEIVED PATIENT IN STABLE CONDITION. IN NO APPARENT DISTRESS. BEDSIDE RAILS ARE UPX2. BED IS LOCKED AND LOWERED. CALL LIGHT IS WITHIN REACH. IV LINE IS INTACT AND PATENT. WILL CONTINUE TO MONITOR PATIENT.
[2018-09-24 08:00] VITALS: BP 110/60
[2018-09-24] MEDS: ENOXAPARIN SODIUM 40 MG/0.4 ML DISP.SYRIN SQ SCH (08:39)
[2018-09-24] MEDS: SERTRALINE HCL 50 MG TABLET PO SCH (08:39)
[2018-09-24] MEDS ORDERED: DULOXETINE HCL 30 MG CAPSULE.DR PO SCH ×2 (09:00)
--- NOTE | 2018-09-24 10:20 | NUR ---
PATIENT WANTS TO LEAVE AGAINST MEDICAL ADVICE. EXPLAINED RISKS AND BENEFITS TO PATIENT. PATIENT CONTINUED TO INSIST. REMOVED IV LINE. REMOVED ID BAND. PROVIDED PATIENT WITH RESULTS FROM TESTS AND LAB WORK AND DOCTORS NOTES. PATIENT LEFT THE HOSPITAL SAFELY WITH FRIEND.
== END 2018-09-24 10:20 | disposition left against medical advice (07) | DRG 872 ==
LOC: ER 17:28 → TELE 21:10 → MED 09-23 09:37
PROVIDERS: ADMIT Nurse Practitioner Acute Care; ATTEND Nurse Practitioner Acute Care
DX: A41.9 Sepsis, unspecified organism (principal); E87.1 Hypo-osmolality and hyponatremia; E44.1 Mild protein-calorie malnutrition; E87.6 Hypokalemia; E86.0 Dehydration; F41.9 Anxiety disorder, unspecified; M54.30 Sciatica, unspecified side; K57.30 Diverticulosis of large intestine without perforation or abscess without bleeding; I25.10 Atherosclerotic heart disease of native coronary artery without angina pectoris; I10 Essential (primary) hypertension; F29 Unspecified psychosis not due to a substance or known physiological condition; Z98.890 Other specified postprocedural states; Z88.1 Allergy status to other antibiotic agents; Z88.0 Allergy status to penicillin; Z88.2 Allergy status to sulfonamides; Z79.899 Other long term (current) drug therapy; G89.29 Other chronic pain; Z87.442 Personal history of urinary calculi
CPT/HCPCS: 36415; 71045-TC; 80048-TC; 80053-TC; 80061-TC; 80076-TC; 81000-TC; 83605-TC; 83735-TC; 84100-TC; 84484-TC; 85025-TC; 85730-TC; 87040-TC; 87081-TC; 87086-TC; A4216; A4606; G0378; J1650; J1885; J2185; J3475; J7030; Z7610

== ENCOUNTER 2019-10-29 19:46 | Emergency (ER) | payer MEDICARE, BC ==
[~2019-10-29] VITALS: Ht 162.6 cm; Wt 88.9 kg
[~2019-10-29 19:46] MED LIST changes: -CYAN500T4 PO; +CYAN500T65 PO
[2019-10-29 20:06] VITALS: BP 118/91
[2019-10-29] MEDS ORDERED: LIDOCAINE VISCOUS 2% UD 15 ML UDC ONE (21:22)
[2019-10-29] MEDS ORDERED: DEXAMETHASONE SOLN 5 MG/5 ML UDC ONE (21:22)
[2019-10-29] MEDS ORDERED: diphenhydrAMINE HCL 50 MG CAPSULE ONE (21:22)
[2019-10-29] MEDS ORDERED: IBUPROFEN 600 MG TABLET PO ONE ×2 (21:23→21:30)
[2019-10-29] MEDS ORDERED: FAMOTIDINE (20 MG) 20 MG TABLET ONE (21:23)
[2019-10-29] MEDS ORDERED: DEXAMETHASONE SOLN 5 MG/5 ML UDC PO ONE (21:30)
[2019-10-29] MEDS ORDERED: LIDOCAINE VISCOUS 2% UD 15 ML UDC MM ONE (21:30)
[2019-10-29] MEDS ORDERED: FAMOTIDINE (20 MG) 20 MG TABLET PO ONE (21:30)
[2019-10-29] MEDS ORDERED: diphenhydrAMINE HCL 25 MG CAPSULE PO ONE (21:30)
--- NOTE | 2019-10-30 00:12 | NUR ---
Patient discharged to home in stable condition. Written and verbal after care instructions given. Patient verbalizes understanding of instruction.
--- NOTE | 2019-10-30 00:12 | NUR ---
CAME IN FOR ALLERGIC REACTION TO DRUGS. AAOX4. NO SOB. BREATHING EVENLY AND UNLABORED. CONNECTED TO MONITOR.
== END 2019-10-30 00:13 | disposition home or self-care (01) ==
LOC: ER 19:46
DX: T78.40XA Allergy, unspecified, initial encounter (principal); J06.9 Acute upper respiratory infection, unspecified; Z98.890 Other specified postprocedural states; Z88.2 Allergy status to sulfonamides; Z88.1 Allergy status to other antibiotic agents; Z88.8 Allergy status to other drugs, medicaments and biological substances; Z88.0 Allergy status to penicillin; Z79.899 Other long term (current) drug therapy; Z60.2 Problems related to living alone; X58.XXXA Exposure to other specified factors, initial encounter
CPT/HCPCS: 71046; 99284; J8540; Q0163

== ENCOUNTER 2020-11-28 16:42 | Emergency (ER) | payer MEDICARE, BC ==
[~2020-11-28] VITALS: Ht 165.1 cm; Wt 97.5 kg
[~2020-11-28 16:42] MED LIST changes: -CYAN500T65 PO; +CYAN500T72 PO
--- NOTE | 2020-11-28 17:17 | NUR ---
LISSA FROM HOME TO ER BED 11. AAOX4. NOT IN RESP DISTRESS, BREATHING EVEN AND UNLABORED. TALKING IN FULL SENTENCES AND SATTING @ 97% ON RA. AMBULATORY. CAME IN FOR GEN BODY ITCHING. PER PT, SHE HAD HER COVID VACCINATION YESTERDAY THEN THE ITCHING STARTED. PT REPORTS THAT SHE TOOK 6 BENADRYL PILLS SINCE THIS MORNING, LAST DOSE 1300 AND REPORTS THAT IT IS INEFFECTIVE WITH THE ITCHING. SHE ALSO REPORTS THAT SHE GOT A SHOT OF BENADRYL. BODY CHECK DONE AND NO NOTED RASHES. WAS AT THE BEDSIDE FOR EVAL. ORDERS RECEIVED, NOTED AND CARRIED OUT. PT ON MONITOR.
[2020-11-28] MEDS ORDERED: clonazePAM 1 MG TABLET PO ONE (18:00)
[2020-11-28] MEDS ORDERED: clonazePAM 1 MG TABLET ONE (18:07)
--- NOTE | 2020-11-28 19:30 | NUR ---
Pt's ambulation was tested and walking on steady gait without assist
--- NOTE | 2020-11-28 19:55 | NUR ---
Patient discharged to home in stable condition. Written and verbal after care instructions given. Patient verbalizes understanding of instruction. Pt ambulatory with a steady gait
[2020-11-28 19:56] VITALS: BP 138/81
== END 2020-11-28 19:56 | disposition home or self-care (01) ==
LOC: ER 16:44
DX: F41.9 Anxiety disorder, unspecified (principal); E78.5 Hyperlipidemia, unspecified; F32.9 Major depressive disorder, single episode, unspecified; G89.29 Other chronic pain; M54.5 Low back pain; Z98.890 Other specified postprocedural states; Z88.2 Allergy status to sulfonamides; Z88.1 Allergy status to other antibiotic agents; Z88.0 Allergy status to penicillin; Z88.6 Allergy status to analgesic agent; Z88.8 Allergy status to other drugs, medicaments and biological substances; Z60.2 Problems related to living alone; Z79.899 Other long term (current) drug therapy

== ENCOUNTER 2021-06-29 19:20 | Emergency (ER) | payer MEDICARE, BC ==
[~2021-06-29] VITALS: Ht 165.1 cm; Wt 81.6 kg
[~2021-06-29 19:20] MED LIST changes: +CYAN500T64 PO; -CYAN500T72 PO
--- NOTE | 2021-06-29 19:30 | NUR ---
PT BIBS WITH C/O ITCHING ALL OVER BODY. PT STATES, "THERES FLEAS AROUND MY HOUSE". PT ALERT AND ORIENTED X3. AMBULATORY WITH NON LABORED BREATHING.
[2021-06-29] MEDS ORDERED: HYDR50CA5 PO (19:54)
--- NOTE | 2021-06-29 19:59 | NUR ---
PT LEFT ER WITHOUT SIGNING DISCHARGE PAPERS AND WITHOUT SIGNING AMA. RX WAS NOT GIVEN MD AWARE.
[2021-06-29 20:00] VITALS: BP 145/80
== END 2021-06-29 20:00 | disposition home or self-care (01) ==
LOC: ER 19:50
DX: L29.9 Pruritus, unspecified (principal); M54.9 Dorsalgia, unspecified; E66.9 Obesity, unspecified; Z68.30 Body mass index [BMI] 30.0-30.9, adult; Z98.890 Other specified postprocedural states; Z41.1 Encounter for cosmetic surgery; Z88.2 Allergy status to sulfonamides; Z88.1 Allergy status to other antibiotic agents; Z88.0 Allergy status to penicillin; Z88.6 Allergy status to analgesic agent; Z88.8 Allergy status to other drugs, medicaments and biological substances; Z60.2 Problems related to living alone; Z79.899 Other long term (current) drug therapy

== ENCOUNTER 2021-08-17 19:59 | Emergency (ER) | payer MEDICARE, BC ==
[~2021-08-17] VITALS: Ht 165.1 cm; Wt 74.8 kg
[~2021-08-17 19:59] MED LIST changes: +HYDR50CA5 PO
--- NOTE | 2021-08-17 20:25 | NUR ---
PT BIBS C/O MECH FALL ONTO LEFT SIDE. LEFT ANKLE KNEE ELBOW SHOULDER AND NECK PAIN 08/05 -HT -KO -BLOOD THINNER. PT ALERT AND ORIENTED X3. AMBULATORY WITH NON LABORED BREATHING.
--- NOTE | 2021-08-17 22:50 | NUR ---
followed up with kai regarding xray results
[2021-08-18] MEDS ORDERED: NAPR-1009 PO (00:07)
[2021-08-18] MEDS ORDERED: IBUPROFEN 600 MG TABLET ONE (00:08)
[2021-08-18] MEDS ORDERED: IBUPROFEN 600 MG TABLET PO ONE (00:30)
--- NOTE | 2021-08-18 01:04 | NUR ---
Patient discharged to home in stable condition. Written and verbal after care instructions given. Patient verbalizes understanding of instruction.
[2021-08-18 01:40] VITALS: BP 128/70
== END 2021-08-18 01:05 | disposition home or self-care (01) ==
LOC: ER 20:04
DX: S93.492A Sprain of other ligament of left ankle, initial encounter (principal); S16.1XXA Strain of muscle, fascia and tendon at neck level, initial encounter; S09.8XXA Other specified injuries of head, initial encounter; M25.512 Pain in left shoulder; M25.552 Pain in left hip; M25.562 Pain in left knee; E04.1 Nontoxic single thyroid nodule; Z98.890 Other specified postprocedural states; Z88.2 Allergy status to sulfonamides; Z88.1 Allergy status to other antibiotic agents; Z88.0 Allergy status to penicillin; Z88.8 Allergy status to other drugs, medicaments and biological substances; Z60.2 Problems related to living alone; Z79.899 Other long term (current) drug therapy; W01.0XXA Fall on same level from slipping, tripping and stumbling without subsequent striking against object, initial encounter; Y93.89 Activity, other specified; Y92.89 Other specified places as the place of occurrence of the external cause; Y99.8 Other external cause status
CPT/HCPCS: 70450-TC; 71045-TC; 72125-TC; 73030-TC; 73502; 73564-TC; 73610-TC

== ENCOUNTER 2022-11-25 23:04 | Emergency (ER) | payer MEDICARE, BC ==
[~2022-11-25] VITALS: Ht 165.1 cm; Wt 79.4 kg
[~2022-11-25 23:04] MED LIST changes: +NAPR-1009 PO
--- NOTE | 2022-11-25 23:55 | NUR ---
BIB self. for flu like symtome experiencing sore throat, runny nose, cough, and generalized body ache. to bed 6. connected to montior.
--- NOTE | 2022-11-26 02:29 | NUR ---
Patient discharged to home in stable condition. Written and verbal after care instructions given. Patient verbalizes understanding of instruction. ambulatory with a steady gait.
[2022-11-26 02:30] VITALS: BP 148/86
== END 2022-11-26 02:30 | disposition home or self-care (01) ==
LOC: ER 23:05
DX: B34.9 Viral infection, unspecified (principal); Z20.822 Contact with and (suspected) exposure to COVID-19; Z28.310 Unvaccinated for COVID-19; Z28.04 Immunization not carried out because of patient allergy to vaccine or component; Z88.1 Allergy status to other antibiotic agents; Z88.0 Allergy status to penicillin; Z88.2 Allergy status to sulfonamides; I10 Essential (primary) hypertension
CPT/HCPCS: 71045-TC; C9803